=== PATIENT | male | born 1980 | race Caucasian/White ===

== ENCOUNTER 2020-06-28 08:42 | Emergency (ER) | payer MEDICAID, OTHER ==
[2020-06-28] MEDS ORDERED: Norco 10/325 MG Tablet PO ONE (09:18)
[2020-06-28] MEDS ORDERED: Norco 10/325 MG Tablet ONE (09:20)
[2020-06-28] MEDS ORDERED: Hydromorphone 1 mg/ml Injection ONE (10:40)
[2020-06-28] MEDS ORDERED: Zofran 4 MG/2 ML VIAL ONE (10:40)
[2020-06-28] MEDS ORDERED: Zofran 4 MG/2 ML VIAL IV ONE (10:43)
[2020-06-28] MEDS ORDERED: Hydromorphone 1 mg/ml Injection IV ONE (10:43)
[2020-06-28 11:10] VITALS: BP 125/73; PULSE 61; O2SAT 96
--- NOTE | 2020-06-28 12:09 | ERPHSYRPT ---
- History of Present Illness Time Seen by Provider: 06/28/20 09:00 Source: patient Exam Limitations: no limitations Patient Subjective Stated Complaint: pt was drunk and jumped out of a camper twisting his right ankle Triage Nursing Assessment: Pt brought to the ER by a friend, rosas romero, right ankle turned outwards, swelling and bruising, pt has been drinking whiskey and smoking marijuana, pulses normal, rates pain 10/ Physician History: 39 years old male presented in the ER with chief complaint of right ankle pain after he jumped off of his camper last night while he was drinking alcohol and twisted his right ankle. He was not able to get up and walk, but was able to crawl himself into the car where he slept all night. He woke up this morning was not able to have any weightbearing, severe sharp shooting pain with some deformity of right ankle associated with swelling of ankle/anterior foot. No numbness or tingling in the toes. Patient was hurting so bad so he had another shot of whiskey prior to arrival. He is complaining of moderate intensity pain now. No injury anywhere else. Method of Injury: fell, twisted Occurred: yesterday Quality: sharpness, stabbing Severity of Pain-Max: severe Severity of Pain-Current: severe Lower Extremities Pain: ankle: right Modifying Factors: Improves With: immobilization, movement Associated Symptoms: unable to bear weight Allergies/Adverse Reactions: No Known Drug Allergies Allergy (Verified 06/28/20 09:18) Travel Risk - International Travel Have you traveled outside of the country in past 3 weeks: No - Coronavirus Screening Are you exhibiting any of the following symptoms?: No Close contact with a COVID-19 positive Pt in past 14-21 Days: No - Review of Systems Constitutional: No Symptoms Eyes: No Symptoms Ears, Nose, & Throat: No Symptoms Respiratory: No Symptoms Cardiac: No Symptoms Abdominal/Gastrointestinal: No Symptoms Genitourinary Symptoms: No Symptoms Musculoskeletal: Deformity, Fall, Injury, Joint Redness, Joint Pain, Joint Swelling Skin: No Symptoms Neurological: No Symptoms Endocrine: No Symptoms Hematologic/Lymphatic: No Symptoms Immunological/Allergic: No Symptoms - Past Medical History Pertinent Past Medical History: Yes Psycho-Social History: Other Other Medical History: schizo - Past Surgical History Past Surgical History: No - Social History Smoking Status: Current every day smoker Exposure to second hand smoke: Yes Drug Use: marijuana Patient Lives Alone: Yes - Nursing Vital Signs Nursing Vital Signs: Initial Vital Signs Temperature 98.0 F 06/28/20 09:07 Pulse Rate 85 06/28/20 09:07 Blood Pressure 129/83 06/28/20 09:07 O2 Sat by Pulse Oximetry 98 06/28/20 09:07 Pain Scale Pain Intensity 10 - Physical Exam General Appearance: no apparent distress, alert Eyes, Ears, Nose, Throat Exam: normal ENT inspection, TMs normal, pharynx normal Neck Exam: normal inspection, non-tender, supple, full range of motion Cardiovascular/Respiratory Exam: chest non-tender, normal breath sounds, regular rate/rhythm Gastrointestinal/Abdominal Exam: non-tender, soft Back Exam: normal inspection Hips Exam: bilateral: non-tender, normal inspection, normal range of motion Legs Exam: bilateral leg: non-tender, normal inspection, normal range of motion Knees Exam: right knee: bone tenderness (Upper fibula), pain Ankle Exam: right ankle: bone tenderness, deformity (Anteriorly displaced tibia), pain, soft tissue tenderness, swelling, other (Dorsalis pedis cap refill less than 2 seconds), left ankle: non-tender, normal inspection, normal range of motion, no evidence of injury Foot Exam: right foot: swelling (Right dorsum of foot), bilateral foot: non- tender, normal inspection, normal range of motion Neuro/Tendon Exam: normal sensation Mental Status Exam: alert, oriented x 3, cooperative Skin Exam: normal color SpO2 Interpretation: normal SpO2: 96 O2 Delivery: Room Air Procedures - Splinting Location of Splint: Right, Ankle, Lower Leg Type of Splint: Orthoglass Long Leg Splint Splint Applied By: ED Physician Pre-Proc Neuro Vasc Exam: normal Post-Proc Neuro Vasc Exam: neurovascular intact - Joint Reduction Timeout: Performed Joint Reduction Site: Right, ankle Conscious Sedation: No Reduction Attempts: 1 Pre-Procedure Neurovascular Exam: neurovascular intact Post Procedure Neurovascular Exam: neurovascular intact Post Joint Reduction Film: joint reduced - Course Nursing assessment & vital signs reviewed: Yes Ordered Tests: Active Orders 24 hr Category Date Time Status ANKLE (2V) Stat Exams 06/28/20 11:48 Taken ANKLE (3 VIEWS) Stat Exams 06/28/20 09:36 Taken LOWER LEG Stat Exams 06/28/20 11:48 Taken Medication Summary Discontinued Medications Generic Name Dose Route Start Last Admin Trade Name Samantha PRN Reason Stop Dose Admin Hydrocodone Bitart/Acetaminophen 1 tab 06/28/20 09:18 06/28/20 09:21 [place] 10/325 Mg Tablet PO 06/28/20 09:19 1 tab STAT ONE Administration Hydrocodone Bitart/Acetaminophen Confirm 06/28/20 09:20 [place] 10/325 Mg Tablet Administered 06/28/20 09:21 Dose 1 tab .ROUTE .STK-MED ONE Hydromorphone HCl Confirm 06/28/20 10:40 Hydromorphone 1 Mg/Ml Injection Administered 06/28/20 10:41 Dose 1 mg .ROUTE .STK-MED ONE Hydromorphone HCl 1 mg 06/28/20 10:43 06/28/20 10:45 Hydromorphone 1 Mg/Ml Injection IV 06/28/20 10:44 1 mg STAT ONE Administration Ondansetron HCl Confirm 06/28/20 10:40 Zofran 4 Mg/2 Ml Vial Administered 06/28/20 10:41 Dose 4 mg .ROUTE .STK-MED ONE Ondansetron HCl 4 mg 06/28/20 10:43 06/28/20 10:45 Zofran 4 Mg/2 Ml Vial IV 06/28/20 10:44 4 mg STAT ONE Administration - Progress Progress: improved, pain not gone completely, re-examined Progress Note: 06/28/20 old is evaluated for fall with right ankle deformity. He is given pain medication for symptomatic relief. Has intact distal neurovascular. X-rays showed ankle dislocation with anterior displacement of tibia. Is given option of conscious sedation which he does not want and is given IV Dilaudid, traction applied and successful reduction is obtained which is confirmed with x-rays. He also has a fracture proximal fibula. X-rays picture are sent to Dr. Moise and he is okay with current reduction and splint application, will see patient in office on Tuesday morning. He is advised to not have any weightbearing at all. He is given pain medications. Does not have injury anywhere else. Stable for discharge. Counseled about alcohol use. Discussed with DrWill: Other (Nikita) Counseled pt/family regarding: diagnosis, need for follow-up, rad results - Departure Departure Disposition: Home Clinical Impression: Fibula upper end fracture Qualifiers: Encounter type: initial encounter Fracture type: closed Fracture morphology: unspecified fracture morphology Laterality: right Qualified Code(s): S82.831A - Other fracture of upper and lower end of right fibula, initial encounter for closed fracture Dislocation of ankle, right, closed Qualifiers: Encounter type: initial encounter Qualified Code(s): S93.04XA - Dislocation of right ankle joint, initial encounter Fall Qualifiers: Encounter type: initial encounter Qualified Code(s): W19.XXXA - Unspecified fall, initial encounter Condition: Stable Critical Care Time: Yes Critical Care Time(excluding separately billable procedures): Critical 30-74 mins Referrals: JULIETA CANALES [Primary Care Provider] - Follow Up with PCP/3 days Instructions: Ankle Dislocation (DC), Ankle Fracture (DC), Fibula Fracture (DC) Additional Instructions: No weightbearing at all. Use pain medications as needed. Follow-up with podiatry Dr. Moise for reevaluation Tuesday. Return to ER for worsening pain/swelling. Can also loosen the splint if worsening pain swelling or discoloration of toes happen. Prescriptions: Hydrocodone/Acetaminophen [[place] 7.5-325 Tablet] 1 each PO Q4-6HPRN PRN 3 Days #12 tablet MDD 4 PRN Reason: Pain
--- NOTE | 2020-06-28 18:32 | XRAY ---
Indication: Pain following jumping injury. Comparison: None 3 view right ankle demonstrates posterior dislocation of the talus. No other bony, articular, or soft tissue abnormalities.
--- NOTE | 2020-06-28 18:34 | XRAY ---
Indication: Pain following jumping injury. Comparison: None 2 view right lower leg demonstrates nondisplaced non-angulated proximal fibula shaft greenstick type fracture. Ankle reported separately. No other bony, articular, or soft tissue abnormalities.
--- NOTE | 2020-06-28 18:34 | XRAY ---
Indication: Post reduction. Comparison: Taken earlier in the day. Two-view right ankle demonstrates successful reduction of talus dislocation with new splint material. Medial talotibial articulation remains widened. New tiny posterior ankle fracture fragments. No other bony, articular, or soft tissue abnormalities.
== END 2020-06-28 12:16 | disposition home or self-care (01) ==
LOC: ED 08:42
DX: S82.831A Other fracture of upper and lower end of right fibula, initial encounter for closed fracture (principal); S93.04XA Dislocation of right ankle joint, initial encounter; W19.XXXA Unspecified fall, initial encounter; X50.1XXA Overexertion from prolonged static or awkward postures, initial encounter; Y93.9 Activity, unspecified; Y92.9 Unspecified place or not applicable; Y99.9 Unspecified external cause status; M25.571 Pain in right ankle and joints of right foot; Z72.0 Tobacco use; F12.90 Cannabis use, unspecified, uncomplicated
CPT/HCPCS: 29505; 36000; 73590; 73600; 73610; 96374; 96375; 99284; J1170; J2405; A9270-GY

== ENCOUNTER 2020-07-03 05:47 | Day surgery (SDC) | payer OTHER ==
[2020-07-03] MEDS ORDERED: Lactated Ringers 1,000 ML IV SCH (06:30)
[2020-07-03] MEDS ORDERED: CEFAZOLIN 2 GM-D5W BAG** 2 GM/50 ML ML IV SCH (06:30)
[2020-07-03] MEDS ORDERED: Decadron 4 MG INJ ONE ×2 (07:42→09:05)
[2020-07-03] MEDS ORDERED: SUBLIMAZE 250 MCG/5 ML ONE (07:42)
[2020-07-03] MEDS ORDERED: TORAdol 30 mg Injection ONE (07:42)
[2020-07-03] MEDS ORDERED: DIPRIVAN 200 MG/20 ML IV ONE (07:42)
[2020-07-03] MEDS ORDERED: Xylocaine-Mpf 2% 5 Ml Vial ONE (07:42)
[2020-07-03] MEDS ORDERED: Zofran 4 MG/2 ML VIAL ONE (07:42)
[2020-07-03] MEDS ORDERED: Sensorcaine 0.25% 10 ML ONE (08:21)
[2020-07-03] MEDS ORDERED: Lactated Ringers 1,000 ML IV ONE (08:21)
[2020-07-03] MEDS ORDERED: XYLOCAINE 1% HCL 20 ML MDV ONE (08:21)
[2020-07-03] MEDS ORDERED: Naropin 0.5% 30 ML VIAL ONE (09:05)
[2020-07-03] MEDS ORDERED: EPINEPHRINE 1MG/ML AMP ONE (09:05)
[2020-07-03] MEDS ORDERED: Hydromorphone 1 mg/ml Injection ONE (10:05)
[2020-07-03] MEDS ORDERED: SUBLIMAZE 100 MCG/2 ML ONE (10:20)
--- NOTE | 2020-07-03 11:29 | XRAY ---
Indication: Arthroscopy with tendon repair. Intraoperative fluoroscopy was provided for 2 minutes and 13 seconds. 3 digital spot images of the right ankle demonstrates 2 transverse radiolucencies traversing distal fibula and tibia with medial/lateral orthopedic buttons in situ. Correlate with intraoperative findings/report.
[2020-07-03 11:35] VITALS: BP 132/87; PULSE 94; O2SAT 96
--- NOTE | 2020-07-03 11:45 | OP ---
SURGERY DATE: 07/03/2020 0759 INDICATION FOR SURGERY: Mayo presented to the emergency department on Tuesday last week where he was diagnosed with an ankle fracture and disruption of his syndesmosis. In the emergency room, he was reduced and placed in posterior splint and sugar tong and sent to my care for definitive fixation. At this time his fracture is highly unstable given that pronation, external rotation and syndesmosis and as well as posterior dislocation of the talus indicate that there is deltoid insufficiency in addition to a high fibular fracture. Pulses were obtained in the emergency room however when presenting to my clinic I was unable to obtain the dorsalis pedis pulse which made the indication for this procedure somewhat urgent. At the time of reduction he did have pulses. The patient agrees to move forward with surgical fixation at this time understanding all risks, complications and benefits of the procedure including but not limited to failure of surgical intervention, possible need for more surgery in the future and wound complications, delayed healing, poor wound healing and poor bone healing. PREOPERATIVE DIAGNOSIS: Ankle fracture, syndesmosis disruption, deltoid ligament disruption. POSTOPERATIVE DIAGNOSIS: Ankle fracture, syndesmosis disruption, deltoid ligament disruption. PROCEDURE: Ankle arthroscopy and syndesmosis repair right lower extremity. SURGEON: Nikita Parra DPM. TOUCHER UP: None. ANESTHESIA: General with popliteal block postoperatively. HEMOSTASIS: Thigh tourniquet set to 300 mm of Mercury for 36 minutes. ESTIMATED BLOOD LOSS: Less than 50 cc. MATERIALS: Two Arthrex TightRopes and a two-hole plate. INJECTABLES: See anesthesia report for popliteal block. DESCRIPTION OF PROCEDURE AND FINDINGS: With the patient adequately accessed by the anesthesia team, preoperative assessment was obtained and the patient was brought into the OR and placed on the operating room table in supine position. Following adequate general anesthetic being placed, the patient was sedated and a thigh tourniquet was placed on the patient's right thigh, this was a well-padded tourniquet. At this point the foot was then prepped and draped in typical sterile fashion with chlorhexidine to the level of the knee. At this point the lower extremity was lowered onto the surgical field in a sterile fashion. At this time attention was directed to the right ankle where a stab incision was made just medial to the tibialis anterior and a scope was introduced into the right ankle joint in order to address the syndesmosis under arthroscopy. Unfortunately the patient suffered hemarthrosis and prevented this from occurring. At this time decision was made to reduce the syndesmosis manually using a tenaculum. Careful attention was made in order to reduce the syndesmosis with a small portion of posterior overhang of the posterior malleolus on the fibula on the lateral as well as the tenaculum placed on the peroneal groove of the fibula as well as the anterior one-third of the tibial medial malleolus. At this time fluoroscopic imaging was taken and K-wire was driven across in the orientation of the TightRope. At this time the tenaculum was removed and the syndesmosis was determined to be adequately reduced. At this time a cannulated drill set was utilized to drill 1.35 K-wires over a cannulated drill to 3-4 cortices and one of the TightRopes was placed at this time. The two-hole plate was also placed onto the bone in adequate fashion and checked under fluoroscopy to be deemed in adequate position. The second K-wire was then placed and they were deployed with the suture buttons lying flat against the medial aspect of the tibia. At this time fluoroscopic imaging was taken and stress views were demonstrated to be adequate. There did appear to be some deltoid insufficiency on stress exam, however, the soft tissue quality at this time was poor and the decision was made intraoperatively to delay this until the soft tissue quality was better amenable for fixation without possibility of wound dehiscence. At this time copious amounts of sterile saline were utilized to flush the surgical incision site. 2-0 Vicryl was then utilized to coapt the skin edges and 3-0 nylon was then utilized to coapt the skin edges in everting-type fashion. The patient handled the procedure and the anesthesia well without complication and was returned to the postoperative anesthesia care unit where popliteal block was administered to reduce the amount of postoperative pain that the patient felt. Postoperative orders as follows: 1) The patient to resume normal diet. 2) The patient to be nonweight bearing to the right lower extremity. 3) The patient is to be full weight bearing to the left lower extremity with assistance of crutches and potentially a knee scooter. 4) Pain control with [place] 5/325 prescription written in the patient's chart. 5) Deep venous thrombosis prophylaxis of 325 mg of aspirin to be taken until the patient is ambulatory status. 6) Antibiotic prophylaxis of Keflex 500 mg every six hours for ten days to be taken for a course of ten days following the procedure. 7) The patient is to follow up in one week's time for reassessment in clinic and determination if soft tissue quality is adequate, for reassessment of potential of deltoid ligament repair timing.
--- NOTE | 2020-07-03 12:34 | XRAY ---
2 minutes and 13 seconds fluoroscopy time in surgery for arthroscopy of right ankle.
== END 2020-07-03 11:55 | disposition home or self-care (01) ==
LOC: SDC 05:47
PROVIDERS: ATTEND Podiatrist Foot & Ankle Surgery
DX: S82.891A Other fracture of right lower leg, initial encounter for closed fracture (principal); S93.421A Sprain of deltoid ligament of right ankle, initial encounter
CPT/HCPCS: 64445; 73600; 76000; 76937; 76942; J0171; J0690; J1100; J1170; J1885; J2405; J2704; J2795; J3010

== ENCOUNTER 2020-07-25 06:46 | Day surgery (SDC) | payer OTHER ==
[2020-07-25] MEDS ORDERED: Lactated Ringers 1,000 ML IV ONE ×2 (07:22→07:43)
[2020-07-25] MEDS ORDERED: CEFAZOLIN 2 GM-D5W BAG** 2 GM/50 ML ML IV ONE (07:24)
[2020-07-25] MEDS ORDERED: Lactated Ringers 1,000 ML IV SCH (07:30)
[2020-07-25] MEDS ORDERED: CEFAZOLIN 2 GM-D5W BAG** 2 GM/50 ML ML IV SCH (07:30)
[2020-07-25] MEDS ORDERED: BUPIVACAINE 0.5% VIAL IJ ONE (07:43)
[2020-07-25] MEDS ORDERED: XYLOCAINE 1% HCL 20 ML MDV ONE (07:43)
[2020-07-25] MEDS ORDERED: Xylocaine-Mpf 2% 5 Ml Vial ONE (08:34)
[2020-07-25] MEDS ORDERED: DIPRIVAN 200 MG/20 ML IV ONE (08:34)
[2020-07-25] MEDS ORDERED: SUBLIMAZE 250 MCG/5 ML ONE (08:34)
[2020-07-25] MEDS ORDERED: Decadron 4 MG INJ ONE (08:34)
[2020-07-25] MEDS ORDERED: Zofran 4 MG/2 ML VIAL ONE (08:34)
[2020-07-25] MEDS ORDERED: TORAdol 30 mg Injection ONE (08:34)
[2020-07-25] MEDS ORDERED: SUBLIMAZE 100 MCG/2 ML ONE (11:09)
[2020-07-25] MEDS ORDERED: Hydromorphone 1 mg/ml Injection ONE (11:19)
[2020-07-25 11:53] VITALS: O2SAT 98
--- NOTE | 2020-07-25 12:00 | XRAY ---
Indication: Synesmosis repair deltoid ligament. Intraoperative fluoroscopy was provided for 1 minute 24 seconds. 5 digital spot images submitted for interpretation demonstrates 2 orthopedic screws traversing the distal right tibia/fibula. Drill tip traverses medial malleolus. Correlate with intraoperative findings/report.
[2020-07-25 12:48] VITALS: BP 140/82; PULSE 72
--- NOTE | 2020-07-25 22:04 | XRAY ---
1 minute 4 seconds of fluoroscopy was used in surgery for synesmosis repair deltoid ligament right ankle.
--- NOTE | 2020-07-28 10:22 | OP ---
SURGERY DATE: 07/25/2020 0850 INDICATION FOR PROCEDURE: On follow up of syndesmotic reduction, it appears that there was loss of reduction of the syndesmosis due to noncompliance on the patient's part. At this time revision will be made with hardware instead of suture anchors in order to reduce the syndesmosis and the hardware will be removed. It was also preoperatively planned that the deltoid due to the nature of the injury that was sustained and the posterior dislocation of the talus on the tibia that the deltoid ligament was ruptured this was planned from the initial surgery to come back and repair in a delayed-type fashion. The patient understands all risks, complications and benefits of the procedure at this time and is willing to move forward with intervention. PREOPERATIVE DIAGNOSIS: Retained hardware malreduction, deltoid insufficiency, and syndesmotic rupture, right ankle. POSTOPERATIVE DIAGNOSIS: Retained hardware malreduction, deltoid insufficiency, and syndesmotic rupture, right ankle. PROCEDURE: Removal of hardware, repair syndesmosis, and superficial deltoid ligament repair. SURGEON: Nikita Parra DPM. ADMINISTRATIVE DIRECTOR: None. ANESTHESIA: General. HEMOSTASIS: Thigh tourniquet set to 350 mm of Mercury for 87 minutes. ESTIMATED BLOOD LOSS: Less than 20 cc. MATERIALS: Right peek soft tissue anchors and two - 3.5 syndesmotic screws as well as 2-0 Vicryl and 3-0 Nylon. INJECTABLES: 30 cc postoperative block of 1:1 mixture of 0.5% Marcaine plain and 1% lidocaine plain for a total of 30 cc. DESCRIPTION OF PROCEDURE AND FINDINGS: After assessment by the anesthesia team, the patient was brought into the OR and placed on the OR table in supine position. Following adequate sedation by the anesthesia team under general anesthesia, the right lower extremity was prepped and draped in the typical sterile fashion and the right lower extremity was lowered onto the surgical field. At this time attention was directed to the lateral aspect of the ankle where the previous incision was made. A full thickness incision was made in this location being careful to not damage any neurovascular structures and cauterizing bleeders as I proceeded to the TightRope. At the plate was encountered. Second incision was made on the medial aspect in order to identify the buttons and these were resected out and the plate and the buttons were pulled through from the lateral aspect. At this time a syndesmotic clamp was utilized to appropriately reduce the syndesmosis in the proper position. At this time a 2.5 drill was utilized to make two separate drill holes across the syndesmosis in a bicortical-type fashion drilling through four cortices in order to prevent any distraction with placement of the screws. At this time two - 3.5 screws were then placed through the fibula and tibia in order to reduce the syndesmosis this was checked under fluoroscopic imaging and deemed to be adequate and the reduction of the syndesmosis was achieved at this time. Attention was directed to the medial incision which was extended distally from the tip of the medial malleolus down to the level of the superficial deltoid and the spring ligament. At this time it was identified that superficial deltoid was torn. However the spring ligament was intact at this location. Dissection revealing the level underneath, the interval underneath the superficial deltoid showed an intact deep deltoid ligament. At this time intraoperative decision was made to only repair the superficial deltoid as the deep deltoid appeared to be intact at this time. This was achieved utilizing 3.5 PEEK suture anchors placed anterior and posterior on the anterior colliculus of the medial malleolus as well as within the intercollicular groove. The periosteum was also reflected at this time in order to reef up tension on closure of the superficial deltoid this was resected off the distal tip of the medial malleolus. Any devitalized or hematoma was resected. The suture was passed in a horizontal mattress-type fashion and hand tied in a position with the foot in neutral and slightly inverted position. Following the placement of the sutures the limb was viewed under fluoroscopy and stress was applied and the repair was deemed to be adequate. At this time the incision sites were flushed with copious amounts of sterile saline, 2-0 Vicryl was utilized to coapt the skin edges and a horizontal mattress-type fashion suture was applied with 3-0 Nylon in order to luz elena the skin edges. The patient's lower extremity was then washed and dried with a clean lap. Betadine was applied to the medial and lateral aspects of the lower extremity. Dressing consisting of Adaptic, 4x4, Kerlix, and TETE was applied this was then covered with cast padding and an additional layer of Kerlix and his lower extremity was placed into a long leg Cam walker. At this time the patient was reversed from anesthesia with vital signs stable and vascular status intact. He was returned to the postoperative anesthesia care unit and he handled the procedure without complication. Postoperative orders as follows: 1) Keep postoperative dressing clean, dry and intact. Do not alter the dressings in any way without consulting Dr. Nikita levine. Dressing is to remain dry throughout the postoperative period. 2) Elevate operative extremity to the level of the heart to reduce inflammation and pain. 3) Ice behind the knee to reduce inflammation. 4) Nonweight bearing to the right lower extremity. Full weight bearing to the left lower extremity with the assistance of crutches or a knee scooter. 5) Postoperative pain control: [place] 5/325 mg every 4 or 6 hours for breakthrough pain and alternate with ibuprofen 600 mg every 6 hours. 6) Postoperative infection prophylaxis: Keflex 500 mg every 6 hours for 10 days. 7) Postoperative deep venous thrombosis prophylaxis: Aspirin 325 mg p.o. daily until weight bearing. 8) Follow up in clinic within one week of procedure. 9) Discharge patient to home.
== END 2020-07-25 12:35 | disposition home or self-care (01) ==
LOC: SDC 06:46
PROVIDERS: ATTEND Podiatrist Foot & Ankle Surgery
DX: S93.421D Sprain of deltoid ligament of right ankle, subsequent encounter (principal); S82.401D Unspecified fracture of shaft of right fibula, subsequent encounter for closed fracture with routine healing; S93.491D Sprain of other ligament of right ankle, subsequent encounter
CPT/HCPCS: 20680; 27695; 27829; 73600; 76000; 76937; J0690; J1100; J1170; J1885; J2405; J2704; J3010